=== PATIENT | male | born 2005 | race Caucasian/White ===

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

== ENCOUNTER 2025-04-30 14:14 | Emergency (ER) | payer MEDICAID, SELFPAY ==
--- NOTE | ~2025-04-30 | XR_ITS ---
EXAMINATION: XR TOES, RIGHT CLINICAL INFORMATION: injury of the right 5th toe COMPARISON: None available. TECHNIQUE: AP foot and two-view right fifth digit FINDINGS: Small corticated bony density is present along the medial aspect of the DIP joint of the fifth digit. No other abnormality is evident. XR/XR toe RT min 2V IMPRESSION: Small ossification medial to the DIP joint of the fifth digit is probably chronic in nature. Correlate clinically to rule out a small avulsion injury. Electronically signed by: Juan C Chung MD 04/30/2025 02:52 PM EDT
[2025-04-30 14:27] VITALS: BP 157/76; PULSE 72; RESP 18; TEMP 36.4; O2SAT 97; BMI 25.9
--- NOTE | 2025-04-30 14:30 | ED_ITS ---
HPI - Extremity Injury (Lower) General Chief Complaint: Extremity Injury, Lower Stated Complaint: Toe injury Time Seen by Provider: 04/30/25 15:52 Source: patient and RN notes reviewed Mode of arrival: ambulatory Limitations: no limitations History of Present Illness ED Provider: Karly Moraes PA-C HPI Narrative: This is a 19-year-old male, with no known medical problems, who presents em ergency department for evaluation of right 5th toe pain for the last 2 days. Patient states that he accidentally stubbed his right 5th toe on a high chair at home. Patient reports pain with weight-bearing, and movement. Denies taking any medications at home to treat his current pain. No former injury to his toe in the past. No other complaints or concerns at this time. Onset (ago): day(s) Injury: Right: foot Type of Injury: blunt Place: home Related Data Previous Rx's ?Medication ?Instructions ?Recorded acetaminophen 500 mg tablet 500 mg PO Q6H PRN pain #30 tabs 04/30/25 (Tylenol Extra Strength) ibuprofen 600 mg tablet 600 mg PO Q6H PRN pain #30 t abs 04/30/25 Allergies Allergy/AdvReac Type Severity Reaction Status Date / Time shrimp (SHRIMP) Allergy Severe HIVES Verified 04/30/25 14:28 shellfish derived (SHELLFISH AdvReac Unknown HIVES Verified 04/30/25 14:28 DERIVED) Review of Systems Review of Systems: Yes all other systems are reviewed and are negative [facility] Past Medical History Surgical History No pertinent past surgical history Social History Social History Advance Directives: No Advance Directives Information Provided: No Do you have a plan to hurt others: No Plan Physical Exam Vital Signs: Vital Signs: Last Vital Signs Temp 97.5 F 04/30/25 14:27 Pulse 72 04/30/25 14:27 Resp 18 04/30/25 14:27 BP 157/76 H 04/30/25 14:27 Pulse Ox 97 04/30/25 14:27 O2 Del Method Room Air 04/30/25 14:27 BMI result Body Mass Index 25.9 General: Awake, alert, and oriented X3. No acute distress. HEENT: Normal inspection CVS: Normal heart rate and rhythm. Pulses normal. Respiratory: No respiratory distress Skin: Warm, dry, no rashes noted to exposed skin. Normal skin color. Normal skin turgor. Extremities: Right 5th toe, with ecchymosis seen along the medial aspect with tenderness palpation. Sensation intact. Capillary refill less than 2 seconds, able to flex and extend. Strong DP pulse. No open wounds or lacerations. Neuro: Oriented X 3. No motor deficit. No sensory deficit. Course Course Course Narrative: This is a Rapid Medical Examination (RME) performed by Saul Ghotra PA-C in triage. Full HPI, ROS, assessment and treatment plan per primary provider in the Main ED. Hx: 19 yo M here w/ R 5th toe pain after stubbing it on a highchair 2 days ago. PE/vitals: erythema/swelling to entire toe, from intact. pain w/ ambulation. Plan: xrs Medical Decision Making Medical Decision Making MDM Narrative: This is a 19-year-old male who presents emergency department with concerns of right 5th toe pain after stubbing toe on a high chair. On arrival, blood pressure mildly elevated at 150 7/76, all other vital signs within normal snowden its. He is speaking full sentences under no acute distress. Patient has bruising noted along the medial aspect of the right 5th toe. X-rays were obtained prior to my evaluation, this revealed a small ossification medial to the D IP joint of the 5th digit, likely chronic in nature however given recent injury, no previous injury as well as exquisite tenderness in his region, this is likely an acute fracture. Toe was ludmila-taped, he was given orthopedic follow-up. He declined wanting any crutches at this time. Given R.I.C.E techniques. Given strict return precautions. No open wounds or lacerations therefore no open fracture seen. Differential Diagnosis Differential Diagnoses: The differential diagnosis associated with the pr esentation includes Fracture, sprain, strain, contusion, fracture Radiology Impression Discussion of test interpretation with radiology: I have reviewed the radiologist's reading. Radiologist Impression: FINDINGS: Small corticated bony density is present along the medial aspect of the DIP joint of the fifth digit. No other abnormality is evident. XR/XR toe RT min 2V IMPRESSION: Small ossification medial to the DIP joint of the fifth digit is probably chronic in nature. Correlate clinically to rule out a small avulsion injury. Electronically signed by: Juan C Chung MD 04/30/2025 02:52 PM EDT RP Dictated By: Juan C Chung MD Discharge Plan Discharge Clinical Impression: Fracture of toe Patient Disposition: Home, Self-Care Instructions: Toe Fracture (ED) Additional Instructions: You were seen in the emergency department after injuring your right 5th toe. Your x-rays concerning for a fracture. Please rest, ice, elevate, and ludmila tape your toe. Do this for several weeks. You may take ibuprofen and or Tylenol as needed for pain and symptoms. Please follow-up with the child welfare specialist to ensure that your toe is healing well. Call to make an appointment. If any new or worsening symptoms occur including but not limited to decreased sensation to your toe, significant change in coloration in your toe, please seek emergent care. Prescriptions: New ibuprofen 600 mg tablet 600 mg PO Q6H PRN (Reason: pain) Qty: 30 0RF acetaminophen [Tylenol Extra Strength] 500 mg tablet 500 mg PO Q6H PRN (Reason: pain) Qty: 30 0RF Referrals: [facility] [Provider Group] Stand Alone Forms: Work/School Release Print Language: Somali
[2025-04-30 16:27] VITALS: BP 157/76; PULSE 72; RESP 18; TEMP 36.4; O2SAT 97
--- OUTSIDE RECORDS SUMMARY | 2025-04-30 17:30 | XMS_ITS | Clinical Summary ---
Author Organization [facility] Address [address] [place] [phone] Phone Care Team Providers Care Vice President Name Role Phone Karla Castillo MD Primary Care Provider Unavailabl e Immunizations Immunization Administration Dates Next Due DTaP / Hep B / IPV 01/20/2006,2005, 006 DTaP 5 10/27/2006 Hep A, ped/adol 11/30/2007,10/10/2006 Hep B, ped/adol 2005 Hib (HbOC) 10/27/2006 Hib (PRP-T) 01/20/2006,2005,2005 Influenza, injectable, trivalent 10/10/2006 MMRV 10/10/2006 Pneumococcal Conjugate 10/27/2006,01/20/2006,,2005 Family History Relation Name Status Comments Father Alive Father: Alive a nd well Mother Alive Mother: Alive a nd well Sister Alive Sister: Alive a nd well Social History Tobacco Use Types Packs/Day Years Used Date Smoking Tobacco: Never Assessed Sex and Gender Information Value Date Recorded Sex Assigned at Not on file Legal Sex Male 4:36 PM EDT Gender Identity Not on file Sexual Orientation Not on file Plan of Treatment Health Maintenance Due Date Last Done Comments IPV Vaccines (4 of 4 - 4-dose series) 2009 01/20/2006, 2005, 2005 Varicella Vaccines (2 of 2 - 2-dose childhood series) 2009 10/10/2006 DTaP,Tdap,and Td Vaccines (5 - Tdap) 2016 10/27/2006, 01/20/2006, 2005, Additional history exists HPV Vaccines (1 - Male 3-dose series) 2020 Men B Vaccine (1 of 2 - Standard) 2021 COVID-19 Vaccine ( season) 2024 Influenza Vaccines (#1) 2025 10/10/2006 Hepatitis B Vaccines Completed 01/20/2006, 2005, 2005, Additional history exists MMR Vaccines Completed 10/10/2006 HIB Vaccines Completed 10/27/2006, 01/10, 2005, Additional history exists Pneumococcal Vaccine Completed 10/27/2006, 01/20/2006, 2005, Additional history exists Hepatitis A Vaccines Completed 11/30/2007, 10/10/19 07 Meningococcal Vaccine Aged Out No laci kimberly eligible based on patient's age to complete this topic Care Teams Vice President Relationship Specialty Start Date End Date Karla Castillo MD PCP - General 04/22/17
--- OUTSIDE RECORDS SUMMARY | 2025-04-30 17:30 | XMS_ITS | Clinical Summary ---
Author Organization [employer] Address [address] [facility] 7 [place] [address] Care Team Providers Care Animal Nutrition Consultant Name Role Phone Yumiko Vasquez MD Primary Care Provider [phone] Allergies Active Allergy Reactions Criticality Noted Date Comments Shellfish Allergy 11/03/2022 Body itching and Swelling Shellfish-Derived Products 7 Other reaction(s): SOB,RASH Medications Melatonin 5 MG chewable tablet 1 tablet,chewable by oral route once daily at bedtime prn sleep 2 Active Spacer/Aero-Hol ding Chambers (AeroChamber Plus Abdirizak-Vu Medium) misc by Other route. Use as instructed Active EPINEPHrine (EpiPen 2-Denis) 0.3 MG/0.3ML injection syringeIndicati ons:Acute pain of left thigh as directed prn for acute allergic reaction Strength: 0.3 MG/0.3ML 1 each 1 2 Active albuterol (Ventolin HFA) 108 (90 Base) MCG/ACT inhalerIndicati ons:Acute pain of left thigh TAKE 2 PUFFS BY MOUTH EVERY 4 TO 6 HOURS NEEDED FOR SHORTNESS OF BREATH COUGH OR WHEEZING 18 g 3 Active Active Problems Problem Noted Date Diagnosed Date Hydrocele in adult 10/14/2023 Assessment & Plan (10/14/2023 9:14 AM EST): Bilateral, asymptomatic PCP had already referred him to , I gave him referral information to [facility] Discussed about STI prevention, gave him several condom samples. Discussed about BC and family planning and told him to discuss issue with his partner. Shellfish allergy 08/12/2022 Moderate persistent asthma 08/23/2019 Immunizations Immunization Administration Dates Next Due DTaP 05/20/2011, 7,01/20/2006,11/23,2005 DTaP / Hep B / IPV 01/20/2006,2005, 006 DTaP, 5 pertussis antigens 10/27/2006 HPV 9-Valent 02/16/2018,02/08/2017 Hep A, ped/adol, 2 dose 11/30/2007,10/10/2006 Hep B, Adolescent or Pediatric 6,2005,2005,07/26 Hib (HbOC) 10/27/2006, 6,2005,10/05 Hib (PRP-T) 01/20/2006,2005,2005 IPV 05/20/2011, 6,2005,10/05 Influenza injectable quadriv alent preservative free 10/14/2023,05/20/2022,08/06/2020,08/23 Influenza, IIV3, injectable 05/27/2011, 7 MMR 02/12/2010,10/10/2006 MMRV 10/10/2006 Meningococcal MCV4P ACYW-135 02/01/2022,02/09/20 17 Pfizer Covid-19 Vaccine 12+ 10/14/2023 Pneumococcal Conjugate PCV 7 10/27/2006, 01/20/2006,2005,10/05 Tdap 02/08/2017 Varicella 02/12/2010,10/10/2006 Social History Tobacco Use Types Packs/Day Years Used Date Smoking Tobacco: Never Smokeless Tobacco: Never Tobacco Cessation:Counseling Given: Not Answered Alcohol Use Standard Drinks/Week Comments Never 0 (1 standard drink = 0.6 oz pur e alcohol) Depression Answer Date Recorded Patient Health Questionnaire-9 Score 4 04/13/2023 Housing Stability Answer Date Recorded What is your housing situation today? I have liudmila alvarez 10/14/[address] you li ve. Do you have problems with any of the following? None of the above 10/14/2023 Food Insecurity Answer Date Recorded Within the past 12 months, y ou worried that your food would run out before you got money to buy more: Never True 07/08/2023 Within the past 12 months,th e food you bought just didn't last and you didn't have enough money to get more: Never True Transportation Answer Date Recorded In the past 12 months, has l ack of transportation kept you from medical appts, meetings, work or from getting things needed for daily living? No 07/08/2023 Utilities Answer Date Recorded In the past 12 months, has t he electric, gas, oil or water company threatened to shut off services in your home? No 07/08/2023 Depression Answer Date Recorded Patient Health Questionnaire-2 Score 0 04/13/2023 Sex and Gender Information Value Date Recorded Sex Assigned at Male 07/12/2022 10:21 AM EDT Legal Sex Male 10:21 AM EDT Gender Identity Male 07/12/2022 10:21 AM EDT Sexual Orientation Straight 09/17/2022 12 :09 PM EST Last Filed Vital Signs Vital Sign Reading Time Taken Comments Blood Pressure 136/76 06/19/2024 12:57 PM EDT Pulse 60 06/19/2024 12:57 PM EDT Temperature 36.1 C (96.9 F) 06/19/2024 12:57 PM EDT Respiratory Rate 17 06/19/2024 12:57 PM EDT Oxygen Saturation 100% 06/19/2024 12:57 PM EDT Inhaled Oxygen Concentration - - Weight 66 kg (145 lb 6.4 oz) 06/19/2024 12:57 PM EDT Height 168.9 cm (5' 6.5 ) 10/14/2023 8:55 AM EST Body Mass Index 23.12 10/14/2023 8:55 AM EST Body Mass Index Percentile 58.95% 06/19/2024 12: 57 PM EDT Growth Chart: [facility] (Boys, 2-2 0 Years) Plan of Treatment Health Maintenance Due Date Last Done Comments HIV Screening 2005 Disability Screening 2005 Alcohol/Substance Use Screening 2017 Fluoride Varnish 05/24/2020 11/22/2019, 12/09/2014 Family Planning (PISQ) 2020 Meningococcal B Vaccine (1 of 2 - Standard) 2021 Hepatitis C Screening 2023 Depression Screening 04/13/2024 04/13/2023, 04/13/20 23 COVID-19 Vaccine ( - season) 2024 10/14/2023, 02/03/2022, 01/06/2022 Pneumococcal Vaccine: Pediatrics (0 to 5 Years) and At-Risk Patients (6 to 49) Years (1 of 2 - PCV) 2024 10/27/2006, 01/20/2006, 2005, Additional history exists Chlamydia and Gonorrhea Screening 09/07/2024 09/07/2023 SDOH Screening 10/14/2024 10/14/2023 Influenza Vaccine (#1) 2025 , 05/20/2022, 08/06/2020, Additional history exists Tobacco Screening 06/19/2025 06/19/2024 DTaP/Tdap/Td Vaccines (7 - Td or Tdap) 02/08/2027 02/08/2017, 05/20/2011, 10/27/2006, Additional history exists Zoster Vaccines (1 of 2) 2055 RSV Patients and Patients Aged 60 years or older (1 - 1-dose 75+ series) 2080 Hepatitis B Vaccines Completed 01/20/2006, 01/20/2006, 2005, Additional history exists HIB Vaccines Completed 10/27/2006, 01/10, 01/20/2006, Additional history exists Hepatitis A Vaccines Completed 11/30/2007, 10/10/19 07 MMR Vaccines Completed 02/12/2010, 09/13, 10/10/2006 Varicella Vaccines Completed 02/12/2010, 0 10/10/2006, 10/10/2006 IPV Vaccines Completed 05/20/2011, 01/10, 01/20/2006, Additional history exists HPV Vaccines Completed 02/16/2018, 02/08/2017 Meningococcal Vaccine Completed 02/01/2022, 017 RSV under 20 months Aged Out No longe r eligible based on patient's age to complete this topic Rotavirus Vaccines Aged Out No longer eligible based on patient's age to complete this topic Procedures Procedure Name Priority Date/Time Associated Diagnosis Comments CHLAMYDIA/N. GONORRHOEAE RNA, TMA, UROGENITAL Routine 09/07/2023 11:40 AM EST Testicular nodule TOPICAL APPLICATION OF FLUORIDE VARNISH Routine 11/22/2019 12:00 AM EDT from Last 3 Months or Most Recently Relevant to Health Maintenance Results * Chlamydia/N. Gonorrhoeae RNA, TMA, Urogenitial (09/07/2023 11:40 AM EST) CT PCR NOT DETECTED Not Detect. [facility] Comment:A not detected test result does not exclude the possibilityof infection because test results can be affected byimproper specimen collection, concurrent antibiotic therapy,or the number of organisms in the specimen which may bebelow the sensitivity of the test. As with many diagnostictests, results from the Xpert CT/NG assay should beinterpreted in conjunction with other laboratory andclinical data available to the clinician.Xpert CT/NG performance has not been evaluated in patientsless than 14 years of age. The assay should not be used forthe evaluationof suspected sexual abuse or for other medico-legalindications. Additional testing is recommended in anycircumstance when false positive or false negative resultscould lead to adverse medical, social or psychologicalconsequences. NG PCR NOT DETECTED Not Detect. [facility] Comment:A not detected test result does not exclude the possibilityof infection because test results can be affected byimproper specimen collection, concurrent antibiotic therapy,or the number of organisms in the specimen which may bebelow the sensitivity of the test. As with many diagnostictests, results from the Xpert CT/NG assay should beinterpreted in conjunction with other laboratory andclinical data available to the clinician.Xpert CT/NG performance has not been evaluated in patientsless than 14 years of age. The assay should not be used forthe evaluationof suspected sexual abuse or for other medico-legalindications. Additional testing is recommended in anycircumstance when false positive or false negative resultscould lead to adverse medical, social or psychologicalconsequences. Urine (Urine, Random) 09/07/2023 11:40 AM EST 09/07/2023 5:28 PM EST Narrative [facility] - 09/08/2023 2:54 AM EST Urine Obdulia Morales MD LAB MICROBIOLOGY - GENERAL OR DERABLES Final Result [facility] [address] [place] [address] [phone] from Last 3 Months or Most Recently Relevant to Health Maintenance Insurance [employer] Care Teams Animal Nutrition Consultant Relationship Specialty Start Date End Date Yumiko Vasquez MD [address] [place] [phone] PCP - General Family Medicine 10/27/23
== END 2025-04-30 16:28 | disposition home or self-care (01) ==
PROVIDERS: Emergency Provider Emergency Medicine
DX: S92.504A Nondisplaced unspecified fracture of right lesser toe(s), initial encounter for closed fracture (principal); W18.40XA Slipping, tripping and stumbling without falling, unspecified, initial encounter; Y93.89 Activity, other specified; Y92.9 Unspecified place or not applicable; Y99.9 Unspecified external cause status; M79.674 Pain in right toe(s)
CPT/HCPCS: 73660; 99282; 99283

== ENCOUNTER → 2025-04-30 14:28 | Outpatient (BNV) | payer MEDICAID, SELFPAY | PROVIDERS: Visit Provider Radiology Diagnostic Radiology | DX: M25.774 Osteophyte, right foot (principal) | CPT/HCPCS: 73660 ==

== ENCOUNTER 2025-09-11 18:19 | Emergency (ER) | payer SELFPAY ==
--- NOTE | ~2025-09-11 | US_ITS ---
CLINICAL HISTORY: RUQ epigastric pain Exam: Ultrasound of the abdomen, limited to the gallbladder. Comparison: None. Findings: Gallbladder is free of focal filling defects, wall thickening and pericholecystic fluid. Common bile duct measures 3 mm diameter. Impression: 1. Unremarkable gallbladder ultrasound. This document has been electronically signed by: Brandon Somers MD on 09/11/2025 19:22:48
[2025-09-11 18:31] VITALS: BP 145/80; PULSE 68; RESP 18; TEMP 36.9; O2SAT 99; BMI 25.3
--- NOTE | 2025-09-11 18:31 | ED_ITS ---
HPI - Abdominal Pain General Chief Complaint: Abdominal Pain Stated Complaint: Upper abdominal pain Time Seen by Provider: 09/11/25 21:24 Source: patient, RN notes reviewed and old records reviewed Mode of arrival: ambulatory Limitations: no limitations History of Present Illness ED Provider: Ciro ROSE narrative: 20-year-old male who denies any known past medical history presents for evaluation of upper abdominal pain. His pain started this morning pain The pain is across his entire upper abdomen. He states that it is a sharp. He noticed with the pain this morning but does not feel it is related to eating or exertion. He denies any associated symptoms including nausea, vomiting, diarrhea. Denies any fevers, chills pain He has never had any abdominal surgeries in the past He denies excessive alcohol use or NSAID use Related Data Previous Rx's ?Medication ?Instructions ?Recorded acetaminophen 500 mg tablet 500 mg PO Q6H PRN pain #30 tabs 04/30/25 (Tylenol Extra Strength) ibuprofen 600 mg tablet 600 mg PO Q6H PRN pain #30 t abs 04/30/25 aluminum-mag hydroxide-simethicone 10 ml PO QID PRN in digestion 09/11/25 200 mg-200 mg-20 mg/5 mL oral susp #3,000 mL (Maalox Advanced) omeprazole 20 mg capsule,delayed 20 mg PO DAILY #30 ca ps 09/11/25 release Allergies Allergy/AdvReac Type Severity Reaction Status Date / Time shrimp (SHRIMP) Allergy Severe HIVES Verified 09/11/25 18:34 shellfish derived (SHELLFISH AdvReac Unknown HIVES Verified 09/11/25 18:34 DERIVED) Review of Systems Constitutional: Denies body ache(s), Denies chills, Denies fever(s) and Denies headache(s) Eyes: Denies blurry vision Denies dizziness and Denies headache(s) Cardiovascular: Denies chest pain and Denies dyspnea on exertion Respiratory: Denies cough and Denies dyspnea on exertion Gastrointestinal: Reports abdominal pain, Denies diarrhea, Denies loose stools, Denies nausea and Denies vomiting Musculoskeletal: Denies back pain Skin/Breast: Denies rash Denies dizziness and Denies headache(s) PMFSH Past Medical History Surgical History No pertinent past surgical history Social History Social History Smoked in Last 30 Days: No Use of substances other than those prescribed or required for medical reasons: Yes Substance Use Type: Marijuana Advance Directives: No Advance Directives Information Provided: No Physical Exam ED Vital Signs: Vital Signs - 24 hr 09/11/25 18:31 09/11/25 21:45 09/11/25 22:42 Temperature 98.4 F 98 F 98 F Pulse Rate 68 61 61 Respiratory Rate 18 18 18 Blood Pressure 145/80 H 125/75 125/75 Pulse Oximetry 99 98 98 Oxygen Delivery Method Room Air Room Air Room Air BMI result Body Mass Index 25.3 Const General: healthy appearing, comfortable, no acute distress, alert and awake Nutritional Appearance: well nourished Orientation/consciousness: patient oriented x3 HENMT Head: Yes normocephalic and Yes atraumatic Eyes Eyelids: Yes eyelids normal Conjunctivae: conjunctivae normal Sclerae: sclerae normal Corneas: corneas normal Pupils: Equal, round and reactive pupils present EOM: EOMs intact bilaterally Neck Neck: Yes full ROM Resp Effort & Inspection: normal respiratory effort, able to speak in complete sentences and not labored GI Inspection: No distended Palpation (GI): Soft to palpation, not firm, Tenderness to palpation present (GI) in the epigastrum, in the LUQ and in the RUQ; Nayak's sign negative, no guarding and not rigid Skin General skin exam: no rashes or lesions noted and elasticity normal Neuro General: patient oriented x3 Cranial nerves: Yes Equal, round and reactive pupils present and Yes Bilaterally intact EOM present Cognition (Neuro): normal cognition Extrem Other: Moving all extremities well without any obvious deformities Course Course Course Narrative: This is a Rapid Medical Exam performed in triage by Brenda Barfield PA-C. Full HPI, ROS and PE to be performed by primary ED provider. 20 yo M presenting to the ED c/o upper abdominal pain x this AM - constant for the past hour. denies N/V/D, sore throat, cough, urinary sx. denies ETOH or NSAID use PE: abdomen soft w/epigastric/RUQ ttp, +guarding Plan: labs, UA, US Medical Decision Making Medical Decision Making MDM Narrative: 20-year-old healthy male presents for evaluation upper abdominal pain that started today. He has no associated symptoms including fevers, chills pain nausea vomiting, diarrhea, black or bloody stool. His pain seems unrelated to eatin. The pain is constant. On exam he is tender across the upper abdomen, negative Nayak's sign. He had screening labs that showed no significant leukocytosis. He is not anemic. The patient has no electrolyte abnormalities, renal function within normal limits, he has a total bilirubin of 1.3 that is primarily indirect bilirubin at 0.4 is direct bilirubin. No evidence of transaminitis. The patient had an ultrasound ordered that shows a normal gallbladder. I suspect his pain is likely due to stomach ulcers versus gastritis. He had good relief with a GI cocktail. Given that his elevated bilirubin is primarily indirect bilirubin in the fact that he improved with GI cocktail he will be referred to GI and we discharged with the omeprazole for a month. Differential Diagnosis Differential Diagnoses: The differential diagnosis associated with the presentation includes Abdominal pain Gastritis Peptic ulcer disease Denies this Biliary colic Lab Data MDM Lab Attestation statement: I reviewed the patient's lab results. As above 09/11/25 18:50 09/11/25 18:50 Labs: Lab Results 09/11/25 09/11/25 09/11/25 Range/Units 18:47 18:50 21:48 WBC 10.1 (4.8-10.8) X10*3/uL RBC 5.15 (4.60-5.80) X10*6/uL Hgb 14.7 (14.0-18.0) g/dl Hct 44.5 (42.0-52.0) % MCV 86.4 (80.0-98.0) fL MCH 28.5 (27.0-33.0) pg MCHC 33.0 (31.0-36.0) g/dl RDW 12.4 (11.0-16.0) % Plt Count 238 (160-400) X10*3/uL MPV 10.4 (9.4-12.4) fL Immature Gran % (Auto) 0.2 (0.0-0.4) % Neut % (Auto) 74.9 H (45-73) % Lymph % (Auto) 19.1 L (20-40) % Loup % (Auto) 5.1 (2-11) % Eos % (Auto) 0.4 (0-4) % Baso % (Auto) 0.3 (0-2) % Lymph # (Auto) 1.9 (1.2-4.9) X10*3/uL Loup # (Auto) 0.5 (0.1-1.2) X10*3/uL Eos # (Auto) 0.0 (0.0-0.4) X10*3/uL Baso # (Auto) 0.0 (0.0-0.2) X10*3/uL Abs Immat Gran (auto) 0.02 (0.00-0.03) X10*3/uL Absolute Neuts (auto) 7.6 (2.0-8.3) x10*3/uL Absolute Nucleated RBC 0.000 (0.0-0.012) X10*3/uL Nucleated RBC % (auto) 0.0 (0.0-0.2) /100WBC Sodium 141 (135-145) mmol/L Potassium 3.8 (3.3-5.1) mmol/L Chloride 106 (96-108) mmol/L Carbon Dioxide 27 (22-29) mmol/L Anion Gap 12 (12-20) BUN 13 (9-16) mg/dL Creatinine 1.02 (0.5-1.4) mg/dL Estim Creat Clear Calc 104.2 Estimated GFR > 60 Random Glucose 91 (60-115) mg/dL Calcium 9.8 (8.4-10.2) mg/dL Magnesium 1.8 (1.6-2.6) mg/dL Total Bilirubin 1.3 H (0.0-1.0) mg/dL Direct Bilirubin 0.4 (0.0-0.5) mg/dL AST 22 (5-37) U/L ALT 14 (0-40) U/L Alkaline Phosphatase 83 (39-117) U/L Total Protein 7.4 (6.5-8.0) g/dL Albumin 4.9 (3.5-5.0) g/dL Lipase 19 (8-78) U/L Urine Color Yellow Urine Appearance Clear Urine pH 6.0 (5.0-9.0) Ur Specific [place] 1.025 (1.005-1.025) Urine Protein Negative (Neg-Trace) mg/dL Urine Glucose (UA) Negative (Negative) mg/dL Urine Ketones 15 (Negative) mg/dL Urine Blood Negative (Negative) Urine Nitrite Negative (Negative) Ur Leukocyte Esterase Negative (Negative) Influenza Type A (PCR) NEGATIVE (Negative) Influenza Type B (PCR) NEGATIVE (Negative) RSV RNA Qual (PCR) NEGATIVE (Negative) SARS-CoV-2 RNA (RT-PCR) NEGATIVE (Negative) Radiology Impression Discussion of test interpretation with radiology: I have reviewed the radiologist's reading. Radiologist Impression: CLINICAL HISTORY: RUQ epigastric pain Exam: Ultrasound of the abdomen, limited to the gallbladder. Comparison: None. Findings: Gallbladder is free of focal filling defects, wall thickening and pericholecystic fluid. Common bile duct measures 3 mm diameter. Impression: 1. Unremarkable gallbladder ultrasound. This document has been electronically signed by: Brandon Somers MD on 09/11/2025 19:22:48 Medications Administered Discontinued Medications Generic Name Dose Route Start Last Admin Trade Name Freq PRN Reason Stop Dose Admin Al Hydroxide/Mg Hydroxide 30 ml 09/11/25 21:34 09/11/25 21:44 Magnesium Hydrox/Alum Hydrox 30 Ml Oral.Susp PO 09/11/25 21:35 30 ml ONCE ONE Administration Lidocaine HCl 15 ml 09/11/25 21:34 09/11/25 21:43 Lidocaine Hcl Viscous 2 % 15 Ml Solution MUCOUS MEM 09/11/25 21:35 15 ml ONCE ONE Administration Ondansetron HCl 4 mg 09/11/25 21:34 09/11/25 21:44 Ondansetron Odt 4 Mg Tab.Rapdis TRANSLINGU 09/11/25 21:35 4 mg ONCE ONE Administration Discharge Plan Discharge Clinical Impression: Abdominal pain Patient Disposition: Home, Self-Care Instructions: Abdominal Pain (ED) Additional Instructions: Your workup in the ER today was reassuring. This includes the gallbladder ultrasound, your labs I think your pain is related to gastritis or peptic ulcer disease. Take omeprazole daily for 1 month. Use Maalox as needed for breakthrough abdominal pain. Follow up with GI at the number provided, you may benefit from an upper endoscopy Prescriptions: New omeprazole 20 mg capsule,delayed release(DR/EC) 20 mg PO DAILY Qty: 30 0RF alum-mag hydroxide-simeth [Maalox Advanced] 200-200-20 mg/5 mL suspension 10 ml PO QID PRN (Reason: indigestion) Qty: 3000 0RF Rx Instructions: administer between meals and at bedtime No Action ibuprofen 600 mg tablet 600 mg PO Q6H PRN (Reason: pain) Qty: 30 0RF acetaminophen [Tylenol Extra Strength] 500 mg tablet 500 mg PO Q6H PRN (Reason: pain) Qty: 30 0RF Referrals: [facility] [place] [facility] [Provider Group, Gastroenterology] Referral Note: upper abdominal pain Interventions: ED Discharge Assessment Last Done: 09/11/25 22:42 Print Language: American
[2025-09-11 18:56] LABS: MANUAL DIFF FLAG NO
[2025-09-11 19:05] LABS: Hematocrit 44.5 % (42.0-52.0); Hemoglobin 14.7 g/dl (14.0-18.0); Imm Gran Abs Auto 0.02 X10*3/uL (0.00-0.03); Imm Gran Pct Auto 0.2 % (0.0-0.4); Lymphocytes Absolute Auto 1.9 X10*3/uL (1.2-4.9); Mean Corpuscular HGB Conc 33.0 g/dl (31.0-36.0); Mean Corpuscular Hemoglobin 28.5 pg (27.0-33.0); Mean Corpuscular Volume 86.4 fL (80.0-98.0); NRBC Abs Auto 0.000 X10*3/uL (0.0-0.012); NRBC Pct Auto 0.0 /100WBC (0.0-0.2); Platelet Count 238 X10*3/uL (160-400); Red Blood Count 5.15 X10*6/uL (4.60-5.80); White Blood Count 10.1 X10*3/uL (4.8-10.8)
[2025-09-11 19:34] LABS: Alanine Aminotransferase 14 U/L (0-40); Albumin Level 4.9 g/dL (3.5-5.0); Alkaline Phosphatase 83 U/L (39-117); Anion Gap 12 (12-20); Aspartate Amino Transferase 22 U/L (5-37); Blood Urea Nitrogen 13 mg/dL (9-16); Carbon Dioxide 27 mmol/L (22-29); Chloride 106 mmol/L (96-108); Creatinine Clr Calc Pharmacy 104.2; Estimated Glomerular Filt Rate > 60; Potassium 3.8 mmol/L (3.3-5.1); Sodium 141 mmol/L (135-145); Total Protein 7.4 g/dL (6.5-8.0)
[2025-09-11 19:48] LABS: Calcium 9.8 mg/dL (8.4-10.2); Lipase 19 U/L (8-78); Magnesium 1.8 mg/dL (1.6-2.6)
[2025-09-11 20:08] LABS: Resp Syncy Virus RNA Qual PCR NEGATIVE (Negative); SARS COV2 PCR INHOUSE NEGATIVE (Negative)
--- NOTE | 2025-09-11 21:08 | PC.NURSE ---
pt eports abdominal pain for a couple days getting worse today, reports pain 7/10, upper abd. Pt denies N/V/D, normal urine output, normal BM, last BM today. respirations even and unlabored.
[2025-09-11] MEDS: Lidocaine HCl Viscous 2 % 15 ML SOLUTION MUCOUS MEM (21:43)
[2025-09-11] MEDS: Magnesium Hydrox/Alum Hydrox 30 ML ORAL.SUSP PO (21:44)
[2025-09-11 21:45] VITALS: BP 125/75; PULSE 61; RESP 18; TEMP 36.6; O2SAT 98
--- OUTSIDE RECORDS SUMMARY | 2025-09-11 21:56 | XMS_ITS | Clinical Summary ---
Author Organization [employer] Address [address] [place] [address] [address] [place] [address] Care Team Providers Care [employer] Prescription Clerk Name Role Phone Yumiko Vasquez MD Primary Care Provider [phone] Allergies Active Allergy Reactions Criticality Noted Date Comments Shellfish Allergy 11/03/2022 Body itching and Swelling Shellfish Protein-Containing Drug Products 10/19/2016 Other reaction(s): SOB,RASH Medications Melatonin 5 MG [...] Mass Index 23.12 10/14/2023 8:55 AM EST Plan of Treatment Health Maintenance Due Date Last Done Comments HIV Screening 2005 Disability Screening 2005 Alcohol/Substance Use Screening 2017 Family Planning (PISQ) 2020 Meningococcal B Vaccine (1 of 2 - Standard) 2021 Hepatitis C Screening 2023 Depression Screening 04/13/2024 04/13/2023, 04/13/20 23 Pneumococcal Vaccine: Pediatrics (0 to 5 Years) and At-Risk Patients (6 to 49) Years (1 of 2 - PCV) 2024 10/27/2006, 01/20/2006, 2005, Additional history exists Chlamydia and Gonorrhea Screening 09/07/2024 09/07/2023 SDOH Screening 10/14/2024 10/14/2023 COVID-19 Vaccine ( - season) 2025 10/14/2023, 02/03/2022, 01/06/2022 Influenza Vaccine (#1) 2025 , 05/20/2022, 08/06/2020, [...] Hepatitis A Vaccines Completed 11/30/2007, 10/10/19 07 IPV Vaccines Completed 05/20/2011, 01/10, 01/20/2006, Additional [...] Routine 09/07/2023 11:40 AM EST Testicular nodule from Last 3 Months or Most Recently Relevant to Health Maintenance Results * Chlamydia/N. Gonorrhoeae RNA, TMA, Urogenitial (09/07/2023 11:40 AM EST) CT PCR NOT DETECTED Not Detect. [facility] Comment:A not detected test result does [...] psychologicalconsequences. NG PCR NOT DETECTED Not Detect. [facility] Comment:A not detected test result does [...] AM EST 09/07/2023 5:28 PM EST Narrative [facility] - 09/08/2023 2:54 AM EST Urine us Obdulia Morales MD LAB MICROBIOLOGY - GENERAL OR DERABLES Final Result [facility] [address] [place] [phone] from Last 3 Months or Most Recently Relevant to Health Maintenance Insurance [employer] Care Teams [employer] Prescription Clerk Relationship Specialty Start Date End Date Yumiko Vasquez MD [address] [place] [id number] PCP - General Family Medicine 10/27/23
[2025-09-11 22:01] LABS: Appearance Urine Clear; Glucose Urine UA Negative (Negative); PH 6.0 (5.0-9.0); Specific Gravity - Urine 1.025 (1.005-1.025)
[2025-09-11 22:42] VITALS: BP 125/75; PULSE 61; RESP 18; TEMP 36.6; O2SAT 98
== END 2025-09-11 23:28 | disposition home or self-care (01) ==
PROVIDERS: Physician Assistant; Emergency Provider Student in an Organized Health Care Education/Training Program
DX: R10.9 Unspecified abdominal pain (principal); Z03.818 Encounter for observation for suspected exposure to other biological agents ruled out
CPT/HCPCS: 76705; 80048; 80076; 81003; 83690; 83735; 85025; 87637; 99284

== ENCOUNTER → 2025-09-11 18:32 | Outpatient (BNV) | payer MEDICAID, SELFPAY | PROVIDERS: Visit Provider Radiology Diagnostic Radiology | DX: R10.11 Right upper quadrant pain (principal) | CPT/HCPCS: 76705 ==